=== PATIENT | male | born 1955 | race Caucasian/White ===

== ENCOUNTER 2016-05-29 17:11 | Observation (INO) | payer OTHER ==
[~2016-05-29] VITALS: Ht 180.3 cm; Wt 93.0 kg
[2016-05-29] MEDS ORDERED: CRESTOR10 MG PO (18:35)
[2016-05-29] MEDS ORDERED: RYTHMOL SR225 MG PO (18:35)
[2016-05-29] MEDS ORDERED: ASPIRIN325 MG PO (18:36)
[2016-05-29] MEDS ORDERED: LISINOPRIL5 MG PO (18:36)
[2016-05-29] MEDS ORDERED: XALATAN 0.005%2.5 ML EYEBOTH (18:36)
[2016-05-29] MEDS ORDERED: BETIMOL5 ML EYEBOTH (18:38)
[2016-05-31] MEDS ORDERED: PREDNISONE10 MG PO ×3 (11:43→11:46)
== END 2016-05-31 12:35 | disposition short-term general hospital (02) ==
LOC: ER 17:11 → IP 19:45 → OBS 19:45 → IP 05-31 12:35
PROVIDERS: ADMIT Family Medicine
DX: K52.9 Noninfective gastroenteritis and colitis, unspecified (principal); K59.00 Constipation, unspecified; I10 Essential (primary) hypertension; R73.9 Hyperglycemia, unspecified; Z86.79 Personal history of other diseases of the circulatory system; Z87.891 Personal history of nicotine dependence; Z79.82 Long term (current) use of aspirin; Z79.899 Other long term (current) drug therapy; Z98.890 Other specified postprocedural states
CPT/HCPCS: A9150; G0378; J1170; J2270; J2405; J2930; Q9963; Q9967

== ENCOUNTER → 2016-08-23 | Outpatient (CLI) | payer OTHER ==
[~2016-08-23] MED LIST: ASPIRIN325 MG PO; BETIMOL5 ML EYEBOTH; CRESTOR10 MG PO; LISINOPRIL5 MG PO; PREDNISONE10 MG PO; RYTHMOL SR225 MG PO; XALATAN 0.005%2.5 ML EYEBOTH
== END | disposition short-term general hospital (02) ==
LOC: CLCARD 07-26 10:45
DX: I48.0 Paroxysmal atrial fibrillation (principal); I10 Essential (primary) hypertension; E78.5 Hyperlipidemia, unspecified; E66.9 Obesity, unspecified; R00.1 Bradycardia, unspecified